=== PATIENT | male | born 1945 | race Caucasian/White ===

== ENCOUNTER 2023-04-29 19:10 | Emergency (ER) | payer MEDICARE, SELFPAY ==
[2023-04-29] VITALS (29 sets, daily range): BP systolic 116–168; BP diastolic 69–88; PULSE 62–75; RESP 13–31; TEMP 36.7; O2SAT 94–100; BMI 29.5
--- NOTE | 2023-04-29 19:38 | XR_ITS ---
The [address] [address] Patient Name: CHRISTIAN GREENFIELD MRN: [id number] date: 1945 Sex: M Assigned Patient Location: ER Current Patient Location: ER Accession/Order Number: [id number] Exam Date: 04/29/2023 19:40 Report Date: 04/29/2023 19:59 At the request of: BUFFY REAL Procedure: XR chest 1V EXAMINATION: XR chest 1V HISTORY: Altered mental status COMPARISON: None. TECHNIQUE: Portable chest FINDINGS: The lung parenchyma is free of consolidation or infiltrate. No pneumothorax or pleural effusion. The cardiac, mediastinal and hilar contours are normal. The visualized osseous structures exhibit no gross abnormality. Status post cervicothoracic instrumentation. XR/XR chest 1V IMPRESSION: No acute cardiopulmonary abnormality. Electronically authenticated by: ABENA DE SOUZA Date: 04/29/2023 19:59
--- NOTE | 2023-04-29 19:38 | ECG_ITS ---
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
[2023-04-29 19:55] LABS: Basophils Absolute Auto 0.1 10^3/uL (0.0-0.1); Basophils Percent Auto 0.5 % (0.2-2.0); Eosinophils Absolute Auto 0.2 10^3/uL (0.0-0.7); Eosinophils Percent Auto 2.1 % (0.9-7.0); Hematocrit 43.1 % (42.0-54.0); Immature Granulocytes Abs Auto 0.04 10^3/uL (0.00-0.03); Immature Granulocytes Pct Auto 0.4 % (0.0-0.5); Lymphocytes Percent Auto 10.8 % (20.5-60.0); Mean Corpuscular HGB Conc 32.5 g/dL (29.9-35.2); Mean Corpuscular Hemoglobin 27.8 pg (25.9-34.0); Mean Corpuscular Volume 85.7 fL (80.0-94.0); Monocytes Absolute Auto 1.3 10^3/uL (0.3-0.8); Monocytes Percent Auto 13.8 % (1.7-12.0); Neutrophils Absolute Auto 6.8 10^3/uL (1.4-6.5); Neutrophils Percent Auto 72.4 % (43.0-75.0); Platelet Count 193 10^3/uL (150-450); Red Blood Count 5.03 10^6/uL (4.70-6.10); Red Cell Distribution Width 15.4 % (11.0-15.0); White Blood Count 9.4 10^3/uL (4.0-11.0)
--- NOTE | 2023-04-29 20:08 | ED.DIZZY1 ---
HPI - Dizziness General Chief Complaint: Syncope Stated Complaint: SYNCOPY Time Seen by Provider: 04/29/23 19:38 Source: patient Mode of arrival: ambulance History of Present Illness HPI Narrative: The patient is a 77-year-old male presenting to us after his daughter found him not responsive while he was sitting in the chair she mentioned that she shakes him trying to wake him up and he did not he was not showing any upper or lower extremity movement. But was opening his eyes and not responding to her it was there for few seconds until she went and spoke with her mom about her back and he was still unresponsive, few seconds later he started responding he mentioned that he felt lightheaded before this happened, the patient admits that this is not the first time he felt this way and he also mentioned that he was apparently spending his day shopping [place] and working outside while not drinking water but drinking tea and root beer The patient denies any chest pain nausea vomiting or any dizziness at the moment he admits that sometimes he will have dizziness when standing up The patient also denies any history of smoking cigarettes Related Data Home Medications Medication Instructions Recorded Confirmed atorvastatin 10 mg tablet 10 mg PO QPM 04/29/23 04/29/23 bupropion HCl 150 mg tablet,12 hr 150 mg PO BID 04/29/23 04/29/23 sustained-release (Wellbutrin SR) finasteride 5 mg tablet 5 mg PO DAILY 04/29/23 04/29/23 gabapentin 600 mg tablet 600 mg PO TID 04/29/23 04/29/23 hydrochlorothiazide 25 mg tablet 25 mg PO DAILY 04/29/23 04/29/23 lisinopril 40 mg tablet 40 mg PO DAILY 04/29/23 04/29/23 rivaroxaban 20 mg tablet (Xarelto) 20 mg PO Q24H 04/29/23 04/29/23 Allergies Allergy/AdvReac Type Severity Reaction Status Date / Time No Known Drug Allergies Allergy Verified 04/29/23 19:17 Review of Systems ROS Status of ROS 10 or more systems reviewed and unremarkable except as noted in history and below [facility] Medical History (Updated 04/29/23 @ 22:45 by Aletha Osorio MD) Social History Smoking status: Former smoker Exam Narrative Exam Narrative: Nurses notes and vital signs reviewed and patient is not hypoxic. General: Well-appearing and in no apparent distress. Skin: Warm, dry, no pallor noted. No rash. Head: Normocephalic, atraumatic. Neck: Supple, non-tender. Eye: Pupils are equal, round and EOMI. No scleral icterus. Ears, Nose, Mouth, and Throat: TM are clear, no nasal mucosal hypertrophy. Oral mucosa is moist, no posterior oropharynx erythema, uvula is mid-line Cardiovascular: Regular Rate and Rhythm without murmur, gallop or rub. Respiratory: No accessory muscle use or respiratory distress. Lungs are clear to auscultation, no wheezing, rales or rhonchi Chest Wall: no tenderness Back: No midline thoracic or lumbar vertebral tenderness. No CVA tenderness Musculoskeletal: normal ROM, no calf or popliteal tenderness, no lower extremity edema/swelling GI: Abdomen is soft, non-distended. Normal bowel sounds. No masses appreciated. No tenderness to palpation. No rebound, guarding, or rigidity noted. Neurological: A&O x4. No cranial nerve dysfunction observed. No truncal ataxia. Moves all extremities. Sensation intact. Psychiatric: Cooperative and interactive. Normal mood and affect. Constitutional Vital Signs, click to edit/add: Last Vital Signs Temp 98.1 F 04/29/23 19:17 Pulse 72 04/29/23 22:20 Resp 16 04/29/23 22:20 BP 160/85 H 04/29/23 22:00 Pulse Ox 100 04/29/23 22:20 O2 Del Method Room Air 04/29/23 19:17 Course Vital Signs Vital signs: Vital Signs Blood Pressure 127/74 04/29/23 19:14 Temperature 98.1 F 04/29/23 19:17 Pulse Rate 72 04/29/23 22:20 Respiratory Rate 16 04/29/23 22:20 Blood Pressure 160/85 H 04/29/23 22:00 Pulse Oximetry 100 04/29/23 22:20 Oxygen Delivery Method Room Air 04/29/23 19:17 MDM - Dizziness MDM Narrative Medical decision making narrative: The patient EKG showing sinus rhythm with a heart rate of [address] elevation or depression The patient troponin repeated twice did not show any acute trending up and the patient CBC showed no acute significant pathology but the chemistry showing an acute kidney injury with his last kidney function was within normal in June 2022 but today his creatinine is 2.1 his last creatinine was 1.1 The patient also was hypotensive when the EMS presented to evaluate him and right now his blood pressure is within normal after 2 L of fluid in the ER the patient is feeling much better he was instructed on hydration and he was instructed about the importance of follow-up with his primary care doctor for further evaluation of his kidney function The patient is to follow up with primary care physician in next 2-3 days or to return to the emergency department should any of the signs or symptoms worsen or new symptoms develop. The patient agrees with the following Diagnosis and Treatment plan and the patient will be discharged home. Lab Data Labs: Lab Results 04/29/23 04/29/23 Range/Units 19:45 21:23 WBC 9.4 (4.0-11.0) 10^3/uL RBC 5.03 (4.70-6.10) 10^6/uL Hgb 14.0 (14.0-18.0) g/dL Hct 43.1 (42.0-54.0) % MCV 85.7 (80.0-94.0) fL MCH 27.8 (25.9-34.0) pg MCHC 32.5 (29.9-35.2) g/dL RDW 15.4 H (11.0-15.0) % Plt Count 193 (150-450) 10^3/uL MPV 10.0 (9.5-13.5) fL Neut % (Auto) 72.4 (43.0-75.0) % Lymph % (Auto) 10.8 L (20.5-60.0) % [place] % (Auto) 13.8 H (1.7-12.0) % Eos % (Auto) 2.1 (0.9-7.0) % Baso % (Auto) 0.5 (0.2-2.0) % Neut # (Auto) 6.8 H (1.4-6.5) 10^3/uL Lymph # (Auto) 1.0 L (1.2-3.8) 10^3/uL [place] # (Auto) 1.3 H (0.3-0.8) 10^3/uL Eos # (Auto) 0.2 (0.0-0.7) 10^3/uL Baso # (Auto) 0.1 (0.0-0.1) 10^3/uL Abs Immat Gran (auto) 0.04 H (0.00-0.03) 10^3/uL Imm/Tot Granulo (auto) 0.4 (0.0-0.5) % PT 13.1 H (9.0-11.6) sec INR 1.25 Sodium 139 (136-145) mmol/L Potassium 4.1 (3.5-5.1) mmol/L Chloride 107 (98-107) mmol/L Carbon Dioxide 26.1 (21.0-32.0) mmol/L Anion Gap 10.0 BUN 25.0 H (7.0-18.0) mg/dL Creatinine 2.21 H (0.70-1.30) mg/dL Est GFR ( Amer) 35 L (>=60) Est GFR (Non-Af Amer) 29 L (>=60) BUN/Creatinine Ratio 11.3 Glucose 161 H (74-106) mg/dL Calcium 7.9 L (8.5-10.1) mg/dL Magnesium 2.1 (1.8-2.4) mg/dL Total Bilirubin 0.5 (0.2-1.0) mg/dL AST 18 (15-37) U/L ALT 32 (16-63) U/L Alkaline Phosphatase 42 L (46-116) U/L Troponin I High Sens 8.4 8.2 (4.0-76.1) pg/mL Total Protein 6.3 L (6.4-8.2) g/dL Albumin 3.4 (3.4-5.0) g/dL Globulin 2.9 g/dL Albumin/Globulin Ratio 1.2 Ethanol Quant <3 mg/dL Discharge Plan Discharge Chief Complaint: Syncope Clinical Impression: Acute dehydration, Acute kidney failure Patient Disposition: Home, Self-Care Time of Disposition Decision: 22:45 Condition: Good Prescriptions / Home Meds: No Action Xarelto 20 mg tablet 20 mg PO Q24H gabapentin 600 mg tablet 600 mg PO TID lisinopril 40 mg tablet 40 mg PO DAILY atorvastatin 10 mg tablet 10 mg PO QPM finasteride 5 mg tablet 5 mg PO DAILY bupropion HCl [Wellbutrin SR] 150 mg tablet sustained-release 12 hr 150 mg PO BID hydrochlorothiazide 25 mg tablet 25 mg PO DAILY Instructions: Acute Kidney Injury (DC) Stand Alone Forms: Portal Instructions Referrals: [facility] [Other] - 1 week Discharge Date/Time: 04/29/23 23:03
[2023-04-29 20:11] LABS: INR 1.25; Prothrombin Time 13.1 sec (9.0-11.6)
[2023-04-29 20:19] LABS: Alanine Aminotransferase 32 U/L (16-63); Albumin Globulin Ratio 1.2; Albumin Level 3.4 g/dL (3.4-5.0); Alkaline Phosphatase 42 U/L (46-116); Aspartate Amino Transferase 18 U/L (15-37); BUN Creatinine Ratio 11.3; Bilirubin Total 0.5 mg/dL (0.2-1.0); Calcium 7.9 mg/dL (8.5-10.1); Carbon Dioxide 26.1 mmol/L (21.0-32.0); Chloride 107 mmol/L (98-107); Estimated GFR (African America 35 (>=60); Estimated GFR (Non-African Ame 29 (>=60); Globulin 2.9 g/dL; Glucose 161 mg/dL (74-106); Potassium 4.1 mmol/L (3.5-5.1); Sodium 139 mmol/L (136-145); Total Protein 6.3 g/dL (6.4-8.2); Troponin I High Sensitivity 8.4 pg/mL (4.0-76.1)
[2023-04-29 20:24] LABS: Ethanol <3 mg/dL; Magnesium 2.1 mg/dL (1.8-2.4)
[2023-04-29] MEDS: 0.9 % SODIUM CHLORIDE 1,000 ML 1000 ML IV (21:03)
[2023-04-29 21:53] LABS: Troponin I High Sensitivity 8.2 pg/mL (4.0-76.1)
== END 2023-04-29 23:03 | disposition home or self-care (01) ==
PROVIDERS: Emergency Provider Emergency Medicine; PCP Internal Medicine
DX: N17.9 Acute kidney failure, unspecified (principal); E86.0 Dehydration; Z79.899 Other long term (current) drug therapy; Z87.891 Personal history of nicotine dependence
CPT/HCPCS: 36415; 71045; 80053; 80307; 80320; 83735; 84484; 85025; 85610; 93005; 99285